=== PATIENT | male | born 1990 ===

== ENCOUNTER 2023-04-17 09:52 | Emergency (ER) | payer BC ==
[2023-04-17 10:23] VITALS: RESP 16
--- NOTE | 2023-04-17 10:56 | ED ---
GI Bleed HPI - General Source: patient, RN notes reviewed Mode of arrival: ambulatory Limitations: no limitations <Justin Hoffman - Last Filed: 04/17/23 10:52> <Daryl Veloz - Last Filed: 04/17/23 14:49> - General Chief complaint: GI Bleed Stated complaint: GI Bleed Time Seen by Provider: 04/17/23 10:52 - History of Present Illness Initial comments: this is 32-year-old male presents emergency Department chief complaint of rectal bleeding, abdominal pain. Patient states that he started this on and off but states it's Lesly in his stool he has mild abdominal cramping. Patient states that he does take Remicade for hydradenitis supportive. Patient denies any history of Crohn's or ulcerative colitis. Patient denies any dysuria. (Justin Hoffman) 32-year-old male presents to the ED with a chief complaint of blood in the stool. Patient states that he has intermittent blood in the stool that has been ongoing however notes that he only notes this when he is actively having a bowel movement. States today when he sat on the toilet without having a bowel movement some blood leaked out of him prompting presentation to the ED for further evaluation. Patient does note some abdominal pain however states that pain is not severe and is not his primary concern. No changes in bowel habits. No changes in bladder habits. Denies chest pain or shortness of breath. No other complaints. (Daryl Veloz) - Related Data Home Medications Medication Instructions Recorded Confirmed inFLIXimab [Remicade] 1 dose IVPB Q28D 04/17/23 04/17/23 Allergies Allergy/AdvReac Type Severity Reaction Status Date / Time No Known Allergies Allergy Verified 04/17/23 12:17 Review of Systems ROS Other: All systems not noted in ROS Statement are negative. <Justin Hoffman - Last Filed: 04/17/23 10:52> ROS Other: All systems not noted in ROS Statement are negative. <Daryl Veloz - Last Filed: 04/17/23 14:49> ROS Statement: Those systems with pertinent positive or pertinent negative responses have been documented in the HPI. Past Medical History Additional Past Medical History / Comment(s): skin condition - gets remicade infusion History of Any Multi-Drug Resistant Organisms: None Reported Past Surgical History: No Surgical Hx Reported Past Psychological History: No Psychological Hx Reported Smoking Status: Vaper Past Alcohol Use History: Occasional Past Drug Use History: Marijuana <Justin Hoffman - Last Filed: 04/17/23 10:52> General Exam Limitations: no limitations <Justin Hoffman - Last Filed: 04/17/23 10:52> General appearance: alert, in no apparent distress Neck exam: Present: normal inspection Respiratory exam: Present: normal lung sounds bilaterally Cardiovascular Exam: Present: regular rate, normal rhythm GI/Abdominal exam: Present: soft (No tenderness to palpation. No rebound guarding or rigidity.), normal bowel sounds Neurological exam: Present: alert, oriented X3 Skin exam: Present: warm, dry <Daryl Veloz - Last Filed: 04/17/23 14:49> - General Exam Comments Initial Comments: Visual Physical Exam Vital signs reviewed General: Well-appearing, nontoxic, no acute distress. Head: Normocephalic, atraumatic Eyes: PERRLA, EOMI ENT: Airway patent Chest: Nonlabored breathing Skin: No visual rash, normal skin tone Neuro: Alert and oriented 3 Musculoskeletal: No gross abnormalities (Justin Hoffman) Course Vital Signs 04/17/23 04/17/23 10:08 14:09 Temperature 98.8 F Pulse Rate 76 67 Respiratory 16 Rate Blood Pressure 143/71 143/76 O2 Sat by Pulse 98 100 Oximetry Medical Decision Making <Justin Hoffman - Last Filed: 04/17/23 10:52> - Lab Data Result diagrams: 04/17/23 11:32 04/17/23 11:32 <Daryl Veloz - Last Filed: 04/17/23 14:49> - Medical Decision Making I completed the quick note portion of this chart signed Justin Hoffman PA-C (Justin Hoffman) Was pt. sent in by a medical professional or institution ([facility], PERSONNEL ASSISTANT, urgent care, hospital, or usp...) When possible be specific @ -No Did you speak to anyone other than the patient for history (EMS, parent, family, police, friend...)? What history was obtained from this source @ -No Did you review nursing and triage notes (agree or disagree)? Why? @ -I reviewed and agree with nursing and triage notes Were old charts reviewed (outside hosp., previous admission, EMS record, old EKG, old radiological studies, urgent care reports/EKG's, usp records)? Report findings @ -No old charts were reviewed Differential Diagnosis (chest pain, altered mental status, abdominal pain women, abdominal pain men, vaginal bleeding, weakness, fever, dyspnea, syncope, headache, dizziness, GI bleed, back pain, seizure, CVA, palpatations, mental health, musculoskeletal)? @ -Differential GI Bleed: Esophageal varices, aortoenteric fistula, Shama-Fink, gastritis, peptic ulcer disease, diverticulosis, inflammatory bowel disease, hemorrhoids, fissure, colitis, malignancy, Meckels diverticulum, this is not meant to be an all- inclusive list. EKG interpreted by me (3pts min.). @ -None X-rays interpreted by me (1pt min.). @ -None done CT interpreted by me (1pt min.). @ -CT abdomen and pelvis interpreted by me showing no evidence of acute findings. U/S interpreted by me (1pt. min.). @ -None done What testing was considered but not performed or refused? (CT, X-rays, U/S, labs)? Why? @ -None What meds were considered but not given or refused? Why? @ -None Did you discuss the management of the patient with other professionals (professionals i.e. , PA, PERSONNEL ASSISTANT, lab, RT, psych nurse, director social, pipe supervisor, teacher, medical officer psychiatry, case technician)? Give summary @ -No Was smoking cessation discussed for >3mins.? @ -No Was critical care preformed (if so, how long)? @ -No Were there social determinants of health that impacted care today? How? (Homel essness, low income, unemployed, alcoholism, drug addiction, transportation, low edu. Level, literacy, decrease access to med. care, intermediate, rehab)? @ -No Was there de-escalation of care discussed even if they declined (Discuss DNR or withdrawal of care, Hospice)? DNR status @ -No What co-morbidities impacted this encounter? (DM, HTN, Smoking, COPD, CAD, Cancer, CVA, ARF, Chemo, Hep., AIDS, mental health diagnosis, sleep apnea, morbid obesity)? @ -None Was patient admitted / discharged? Hospital course, mention meds given and route, prescriptions, significant lab abnormalities, going to OR and other pertinent info. @ -Discharge 32-year-old male presents to the ED with intermittent blood in his stool and some abdominal pain. Laboratory studies reviewed. CBC unremarkable. Chemistry panel unremarkable. Occult blood positive. CT abdomen and pelvis yielded no acute findings. At this time, vital signs stable afebrile. Patient discharged home in stable condition with referral to see GI. Discussed return precautions with patient who verbalizes agree. Undiagnosed new problem with uncertain prognosis? @ -No Drug Therapy requiring intensive monitoring for toxicity (Heparin, Nitro, Insulin, Cardizem)? @ -No Were any procedures done? @ -No Diagnosis/symptom? @ -Rectal bleeding Acute, or Chronic, or Acute on Chronic? @ -Acute Uncomplicated (without systemic symptoms) or Complicated (systemic symptoms)? @ -Uncomplicated Side effects of treatment? @ -No Exacerbation, Progression, or Severe Exacerbation? @ -No Poses a threat to life or bodily function? How? (Chest pain, USA, ND, pneumonia, PE, COPD, DKA, ARF, appy, cholecystitis, CVA, Diverticulitis, Homicidal, Suicidal, threat to staff... and all critical care pts) @ -No (Daryl Veloz) - Lab Data Lab Results 04/17/23 04/17/23 04/17/23 Range/Units 11:32 11:32 11:32 WBC 8.8 (3.8-10.6) k/uL RBC 5.38 (4.30-5.90) m/uL Hgb 15.0 (13.0-17.5) gm/dL Hct 43.8 (39.0-53.0) % MCV 81.5 (80.0-100.0) fL MCH 27.8 (25.0-35.0) pg MCHC 34.2 (31.0-37.0) g/dL RDW 15.6 H (11.5-15.5) % Plt Count 266 (150-450) k/uL MPV 7.6 Neutrophils % 52 % Lymphocytes % 38 % Monocytes % 5 % Eosinophils % 2 % Basophils % 1 % Neutrophils # 4.6 (1.3-7.7) k/uL Lymphocytes # 3.4 (1.0-4.8) k/uL Monocytes # 0.4 (0-1.0) k/uL Eosinophils # 0.2 (0-0.7) k/uL Basophils # 0.1 (0-0.2) k/uL APTT 30.0 (22.0-30.0) sec Sodium 142 (137-145) mmol/L Potassium 4.3 (3.5-5.1) mmol/L Chloride 105 (98-107) mmol/L Carbon Dioxide 25 (22-30) mmol/L Anion Gap 12 mmol/L BUN 16 (9-20) mg/dL Creatinine 0.90 (0.66-1.25) mg/dL Est GFR (CKD-EPI)AfAm >90 (>60 ml/min/1.73 sqM) Est GFR (CKD-EPI)NonAf >90 (>60 ml/min/1.73 sqM) Glucose 93 (74-99) mg/dL Plasma Lactic Acid Kel (0.7-2.0) mmol/L Calcium 9.3 (8.4-10.2) mg/dL Total Bilirubin 1.1 (0.2-1.3) mg/dL AST 32 (17-59) U/L ALT 41 (4-49) U/L Alkaline Phosphatase 73 (38-126) U/L Total Protein 9.0 H (6.3-8.2) g/dL Albumin 4.7 (3.5-5.0) g/dL Lipase 38 (23-300) U/L Stool Occult Blood (Negative) Blood Type Blood Type Recheck Bld Type Recheck Status Antibody Screen Spec Expiration Date 04/17/23 04/17/23 04/17/23 Range/Units 11:32 11:32 12:27 WBC (3.8-10.6) k/uL RBC (4.30-5.90) m/uL Hgb (13.0-17.5) gm/dL Hct (39.0-53.0) % MCV (80.0-100.0) fL MCH (25.0-35.0) pg MCHC (31.0-37.0) g/dL RDW (11.5-15.5) % Plt Count (150-450) k/uL MPV Neutrophils % % Lymphocytes % % Monocytes % % Eosinophils % % Basophils % % Neutrophils # (1.3-7.7) k/uL Lymphocytes # (1.0-4.8) k/uL Monocytes # (0-1.0) k/uL Eosinophils # (0-0.7) k/uL Basophils # (0-0.2) k/uL APTT (22.0-30.0) sec Sodium (137-145) mmol/L Potassium (3.5-5.1) mmol/L Chloride (98-107) mmol/L Carbon Dioxide (22-30) mmol/L Anion Gap mmol/L BUN (9-20) mg/dL Creatinine (0.66-1.25) mg/dL Est GFR (CKD-EPI)AfAm (>60 ml/min/1.73 sqM) Est GFR (CKD-EPI)NonAf (>60 ml/min/1.73 sqM) Glucose (74-99) mg/dL Plasma Lactic Acid Kel 0.8 (0.7-2.0) mmol/L Calcium (8.4-10.2) mg/dL Total Bilirubin (0.2-1.3) mg/dL AST (17-59) U/L ALT (4-49) U/L Alkaline Phosphatase (38-126) U/L Total Protein (6.3-8.2) g/dL Albumin (3.5-5.0) g/dL Lipase (23-300) U/L Stool Occult Blood Positive (Negative) Blood Type O Negative Blood Type Recheck No Previous Record Bld Type Recheck Status CABO Indicated Antibody Screen NEGATIVE Spec Expiration Date 04/20/20232331 Disposition <Justin Hoffman - Last Filed: 04/17/23 10:52> Is patient prescribed a controlled substance at d/c from ED?: No Time of Disposition: 14:49 <Daryl Veloz - Last Filed: 04/17/23 14:49> Clinical Impression: Rectal bleeding Disposition: HOME SELF-CARE Condition: Good Instructions (If sedation given, give patient instructions): Gastrointestinal Bleeding (ED) Additional Instructions: Please return to the Emergency Department if symptoms worsen or any other concerns. Please establish primary care and follow-up with GI. Referrals: None,Stated [Primary Care Provider] - 1-2 days Amberly Perez MD [STAFF PHYSICIAN] - 1-2 days
[2023-04-17 11:49] LABS: Basophils # (A) 0.1 k/uL (0-0.2); Basophils % (A) 1 %; Eosinophils # (A) 0.2 k/uL (0-0.7); Eosinophils % (A) 2 %; HCT 43.8 % (39.0-53.0); Lymphocytes # (A) 3.4 k/uL (1.0-4.8); Lymphocytes % (A) 38 %; MCH 27.8 pg (25.0-35.0); MCHC 34.2 g/dL (31.0-37.0); MCV 81.5 fL (80.0-100.0); Mean Platelet Volume 7.6; Monocytes # (A) 0.4 k/uL (0-1.0); Monocytes % (A) 5 %; Neutrophils # (A) 4.6 k/uL (1.3-7.7); Neutrophils % (A) 52 %; Platelet Count 266 k/uL (150-450); RBC 5.38 m/uL (4.30-5.90); RDW 15.6 % (11.5-15.5); WBC 8.8 k/uL (3.8-10.6)
[2023-04-17 12:06] LABS: ALT 41 U/L (4-49); AST 32 U/L (17-59); African American GFR (CKD) >90 (>60 ml/min/1.73 sqM); Albumin 4.7 g/dL (3.5-5.0); Alkaline Phosphatase 73 U/L (38-126); Anion Gap 12 mmol/L; Blood Urea Nitrogen 16 mg/dL (9-20); Calcium 9.3 mg/dL (8.4-10.2); Carbon Dioxide 25 mmol/L (22-30); Chloride 105 mmol/L (98-107); Glucose 93 mg/dL (74-99); Lipase 38 U/L (23-300); Non-African American GFR(CKD) >90 (>60 ml/min/1.73 sqM); Potassium 4.3 mmol/L (3.5-5.1); Sodium 142 mmol/L (137-145); Total Bilirubin 1.1 mg/dL (0.2-1.3)
--- NOTE | 2023-04-17 14:06 | CT ---
EXAMINATION TYPE: CT abdomen pelvis w con DATE OF EXAM: 04/17/2023 COMPARISON: None HISTORY: bright red rectal bleeding x1 day, abdominal cramping CT DLP: 2472.8 mGycm CONTRAST: CT scan of the abdomen and pelvis is performed without Oral Contrast and with IV Contrast, patient in jected with 100 mL of Isovue 300. FINDINGS: LUNG BASES-: No visible nodule. No infiltrate. LIVER/GB: No calcified gallstones. No space occupying hepatic lesion. Biliary tree is of normal ca liber. PANCREAS: No inflammation. No distinct mass. SPLEEN: Splenomegaly with craniocaudal measurement of 15.8 cm. No lesion seen. ADRENALS: No nodule. No thickening. KIDNEYS/BLADDER: No hydronephrosis. No nephrolithiasis. No distinct renal mass. Urinary bladder g rossly unremarkable. BOWEL: Normal appendix. Normal bowel caliber. No inflammation. GENITAL ORGANS: No gross abnormality. LYMPH NODES: No greater than 1cm abdominal or pelvic lymph nodes are appreciated. AORTA: No significant abnormality. OSSEOUS STRUCTURES: No significant abnormality is seen. OTHER: No significant additional abnormality is seen. IMPRESSION: 1. Splenomegaly. Otherwise unremarkable study.
[2023-04-17 15:43] VITALS: BP 140/86; PULSE 70; TEMP 98.7
== END 2023-04-17 15:33 | disposition home or self-care (01) ==
LOC: EC 09:52
DX: K62.5 Hemorrhage of anus and rectum (principal); F17.290 Nicotine dependence, other tobacco product, uncomplicated; F12.90 Cannabis use, unspecified, uncomplicated
CPT/HCPCS: 36415; 86900; 86901; 80053; 83605; 83690; 85025; 85730; 86850; 82272; 74177; 99285; Q9967

== ENCOUNTER → 2024-04-06 | Outpatient (CLI) | payer BC ==
--- NOTE | 2024-04-06 08:59 | US ---
EXAMINATION TYPE: US abdomen complete DATE OF EXAM: 04/06/2024 COMPARISON: CT 2022 CLINICAL INDICATION: Male, 33 years old with history of K21.9 GASTRO-ESOPHAGEAL REFLUX DISEASE WITHOU T ESO; GERD TECHNIQUE: Grayscale and color Doppler imaging of the abdomen was performed. FINDINGS: EXAM MEASUREMENTS: Liver Length: 20.1 cm Gallbladder Wall: Not seen CBD: 0.63 cm, color Doppler imaging was utilized to isolate the common bile duct for measurement. Spleen: 13.0 cm Right Kidney: 13.6 x 6.9 x 6.2 cm Left Kidney: 12.3 x 6.2 x 5.4 cm WINDOWS SERVER SPECIALIST NOTES: *Exam is limited due to gas. Pancreas: Obscured Liver: Enlarged, heterogeneous, increased attenuation. Gallbladder: Not seen with certainty. Evidence for sonographic Cotto's sign: No CBD: Measures upper limits. Spleen: *Measures upper limits Right Kidney: Enlarged. Left Kidney: No hydronephrosis or masses seen Upper IVC: wnl Abd Aorta: Proximal segment appears ectatic. Mid segment was obscured. *Right iliac artery measures upper limits versus enlarged/aneurysmal?= 1.7 cm in transverse. *Heterogeneous area seen in the RUQ-?Question gallbladder versus other, measures= 5.7 x 2.4 x 3.0 cm. IMPRESSION: 1. Heterogenous appearance in the right upper quadrant in the expected location of the gallbladder. Unclear etiology possibly postcholecystectomy changes versus other. Gallbladder not definitively visu alized. Correlate with clinical history of surgery. Further workup with CT or MRI liver mass protocol recommended. 2. Hepatic steatosis. [facility], , 04/06/2024 8:56 AM
== END | disposition home or self-care (01) ==
LOC: RADUSWWP 08:19
PROVIDERS: ATTEND Internal Medicine
DX: K21.9 Gastro-esophageal reflux disease without esophagitis (principal); K76.0 Fatty (change of) liver, not elsewhere classified
CPT/HCPCS: 76700

== ENCOUNTER → 2024-05-17 | Outpatient (CLI) | payer BC ==
--- NOTE | 2024-05-18 14:12 | MR ---
EXAMINATION TYPE: MR liver wo/w con DATE OF EXAM: 05/17/2024 7:28 PM INDICATION: Patient age:Male; 34 years old; Reason for study: K76.0 HEPATIC STEATOSIS; PHH. COMPARISON: Abdominal ultrasound 04/06/2024, CT abdomen and pelvis 04/17/2023 TECHNIQUE: Multiplanar multi-sequence imaging was performed without and with IV contrast. The patien t was given 13.5 ccs of Gadavist intravenously and dynamic imaging was performed. Post IV contrast schwartz btraction images were also submitted for review. FINDINGS: Limited examination due to patient's body habitus causing artifact. LOWER CHEST: No gross irregularity. ABDOMEN Liver: Noncirrhotic morphology. Enlarged measuring 24.6 cm in CC dimension. Dropout of signal on out of phase imaging throughout. No focal lesion. Portal venous system is patent. Gallbladder and Bile ducts: No biliary ductal dilatation. T1 hyperintensity layering sludge within th e gallbladder. No MRI evidence for acute cholecystitis. Pancreas: Unremarkable. Spleen: Enlarged measuring 15.7 cm in CC dimension. Adrenal glands: Unremarkable. Kidneys: Unremarkable. Stomach and Bowel: Unremarkable as visualized. Peritoneum: No evidence of pneumoperitoneum, free fluid, or adenopathy. Vasculature: Unremarkable. No aortic aneurysm. Abdominal wall: Unremarkable. Musculoskeletal: The osseous structures appear intact. IMPRESSION: Limited examination due to patient's body habitus. 1. Mild hepatic steatosis without focal hepatic lesion. Noncirrhotic morphology. 2. Mild hepatosplenomegaly. 3. Gallbladder sludge. [facility], , 05/18/2024 2:10 PM
== END | disposition home or self-care (01) ==
LOC: RADMRIMAIN 17:56
PROVIDERS: ATTEND Internal Medicine
DX: K76.0 Fatty (change of) liver, not elsewhere classified (principal); K82.8 Other specified diseases of gallbladder; R16.2 Hepatomegaly with splenomegaly, not elsewhere classified
CPT/HCPCS: 74183; A9585